=== PATIENT | female | born 1970 | race Caucasian/White ===

== ENCOUNTER 2019-03-14 12:13 | Day surgery (SDC) | payer BC ==
[2019-03-14] MEDS ORDERED: PROPOFOL 60 ML (15:03)
== END 2019-03-14 16:30 | disposition home or self-care (01) ==
LOC: GIL 12:13
DX: R19.4 Change in bowel habit (principal); K64.8 Other hemorrhoids; K57.30 Diverticulosis of large intestine without perforation or abscess without bleeding; K20.8 Other esophagitis; K29.70 Gastritis, unspecified, without bleeding
CPT/HCPCS: 43239; 84703; 88305; 88312; 88313